=== PATIENT | female | born 1940 | race Caucasian/White ===

== ENCOUNTER → 2019-12-11 13:15 | Outpatient (CLI) | payer MEDICARE, SELFPAY ==
--- NOTE | 2019-12-11 13:20 | MR_ITS ---
PROCEDURE: MR HEAD/BRAIN WO/W CON CLINICAL INDICATION: MALIGNANT NEOPLASM OF LOWER LOBE, LEFT BRONCHUS OR LUNG COMPARISON: HEADWO CT head/brain wo con from 09/17/2018 TECHNIQUE: Routine multiplanar multi echo sequences are performed without and with gadolinium enhancement. FINDINGS: No midline shift, mass effect, intracranial hemorrhage, or hydrocephalus. No enhancing lesions. No evidence of metastatic disease. There are few scattered periventricular and subcortical T2 white matter hyperintensities which do not enhance and do not demonstrate restricted diffusion consistent with ischemic gliotic change from microvascular disease. There is some minimal linear enhancement in the left frontal lobe extending from the frontal horn of the left lateral ventricle. This is nonspecific seen only on 1 axial image and could be even be due to a small developmental venous anomaly. The cerebellopontine angles, cerebellum, and brainstem are unremarkable. The pituitary, optic chiasm, corpus callosum, and craniocervical junction have an unremarkable appearance. There is degenerative disc disease at C4-C5 with mild bulging disc and endplate osteophytes with narrowing of the canal at that level barely visible on the edge of the sagittal images. There is a small amount of fluid in the left mastoid sinus. 18 mm mucous retention cyst is present in the right maxillary sinus. IMPRESSION: 1. No acute intracranial findings. No convincing evidence of metastatic disease. 2. Small nonspecific linear area of enhancement in the left frontal lobe which may be due to a developmental venous anomaly. 3. Left mastoid sinus disease. 4. Degenerative disc disease with narrowing of the canal at the C4-C5 level which may be better evaluated with dedicated C-spine MRI if clinically desired Dictated by: Avinash Haque MD 12/11/2019 14:55 Electronically signed by Avinash Haque MD in [place] 12/11/2019 14:55
== END ==
PROVIDERS: Visit Provider Internal Medicine Hematology & Oncology
DX: C34.32 Malignant neoplasm of lower lobe, left bronchus or lung (principal); Z03.89 Encounter for observation for other suspected diseases and conditions ruled out
CPT/HCPCS: 70553; 94060; 94727; 94729; A9576

== ENCOUNTER 2020-03-26 14:13 | Emergency (ER) | payer MEDICARE, SELFPAY ==
[2020-03-26 15:16] VITALS: BP 135/90; PULSE 68; RESP 19; TEMP 36.6; O2SAT 98; BMI 22.1
--- NOTE | 2020-03-26 15:22 | HMH.EDUTC ---
[facility] [place] Disposition Clinical Impression: Healing laceration, Skin infection Disposition: Home, Self-Care Condition on Discharge: Good Instructions: Cephalexin, DI for Minor Laceration Additional Instructions: Leave area open to air when at home in clean environment *Clean well at least twice daily and apply medication as prescribed Return if needed Straight to ER if any life threatening symptoms Follow up with PCP Prescriptions: Bacitracin [Bacitracin Oint 0.9GM UDP] 1 each TP TID 10 Days #30 packet Prescription Printed cephALEXin [Keflex 500mg Cap] 500 mg PO Q6H 5 Days #20 cap Prescription Printed Referrals: Provider,Referral, [Primary Care Provider] - As needed Time of Disposition: 15:32 Medical Decision Making - Cruz Inquiry Pt receiving controlled substance: No Cruz was queried for this patient: No Vital Signs: 03/26/20 15:16 Temperature 97.8 F Temperature Source Oral Pulse Rate [Right Brachial] 68 Respiratory Rate 19 Blood Pressure [Right Arm] 135/90 Blood Pressure Mean [Right Arm] 105 Blood Pressure Source [Right Arm] Automatic Cuff Blood Pressure Position [Right Arm] Sitting 02 Sat by Pulse Oximetry 98 Oxygen Delivery Method Room Air Orders (Tests/Meds): ED MEDICATIONS Discontinued Medications Generic Name Dose Route Start Last Admin Trade Name Freq PRN Reason Stop Dose Admin Tetanus/Reduced Diphtheria/Acell Pertussis 0.5 ml 03/26/20 15:27 Adacel Tdap 0.5ml Syringe IM 03/26/20 15:28 .ONCE ONE [facility] [place] HPI - General Stated complaint: Left leg cut Time Seen by Provider: 03/26/20 15:22 Mode of Arrival: Ambulatory Source of Information: Patient Limitations: No Limitations Description of Symptoms (Recalled from Triage Doc. by RN): PATIENT CUT LEFT LEG ON [employer] by [employer] BIKE ON SUNDAY. TETANUS SHOT IS NOT UP TO DATE HEENT Symptoms (Recalled from RN notes): No Resp Symptoms (Recalled from RN notes): No Skin Symptoms (Recalled from RN notes): Yes MS Symptoms (Recalled from RN notes): No Functional Status (Recalled from RN notes): WNL - History of Present Illness Provider Complaint: Patient states that she tripped over her [employer] bike on Sunday and it cut the back of her left lower leg States that she has been cleaning it but looked red like it may be getting infected States that also she needs a tetanus shot it has been years since she had one - Related Data Previous Rx's Medication Instructions Recorded Bacitracin [Bacitracin Oint 0.9GM 1 each TP TID 10 Days #30 packet 03/26/20 UDP] cephALEXin [Keflex 500mg Cap] 500 mg PO Q6H 5 Days #20 cap 03/26/20 Allergies Allergy/AdvReac Type Severity Reaction Status Date / Time No Known Allergies Allergy Verified 09/17/18 16:45 - Worker's Comp Is this a Worker's Comp case?: No [facility] History - Hepatitis A Screen Drug use history?: No High risk sexual behaviors?: No History of sexually transmitted infection?: No Currently employed?: No Childcare worker?: No Do you have indoor plumbing?: Yes Do you have electricity?: Yes Attestation statement:: This patient has been screened for Hepatitis A risk factors. - Social History Smoking Status: Current every day smoker Tobacco Type: cigarettes # Packs/Day (cigarettes): 1 Alcohol Intake: never Occupational Status: other ROS Obtained: Yes All systems reviewed & no additional complaints, Yes Systems reviewed as appropriate & no additional complaints - Constitutional Constitutional: Reports system reviewed and no additional complaints, except as docu - Cardiovascular Cardiovascular: Reports system reviewed and no additional complaints, except as docu - Respiratory Respiratory: Yes system reviewed and no additional complaints, except as docu - Gastrointestinal Gastrointestingal: Reports: system reviewed and no additional complaints, except as docu - Musculoskeletal Musculoskeletal: Reports system reviewed and no additional complaints, except
[2020-03-26 15:39] VITALS: BP 135/90; PULSE 68; RESP 19; TEMP 36.6; O2SAT 98
== END 2020-03-26 15:41 | disposition home or self-care (01) ==
PROVIDERS: Emergency Provider Nurse Practitioner; PCP Nurse Practitioner
DX: L03.116 Cellulitis of left lower limb (principal); S81.812A Laceration without foreign body, left lower leg, initial encounter; Z23 Encounter for immunization; F17.210 Nicotine dependence, cigarettes, uncomplicated; W22.8XXA Striking against or struck by other objects, initial encounter; Y92.019 Unspecified place in single-family (private) house as the place of occurrence of the external cause
CPT/HCPCS: G0463; 90471; 90715; 99201

== ENCOUNTER → 2021-06-21 16:12 | Outpatient (CLI) | payer MEDICARE, SELFPAY ==
[2021-06-21 16:30] LABS: Basophils # 0.1 K/mm3 (0-0.2); Basophils % 0.7 % (0.1-2.0); Eosinophils # 0.1 K/mm3 (0.0-0.4); Eosinophils % 1.2 % (0.1-12.0); Hematocrit 40.5 % (37.0-47.0); Hemoglobin 13.5 g/dL (12.2-16.2); Lymphocytes # 1.4 K/mm3 (0.7-4.5); Lymphocytes % 21.7 % (10-50); Mean Corpuscular HGB Conc 33.3 g/dL (31.8-35.4); Mean Corpuscular Hemoglobin 30.3 pg (27.0-31.2); Mean Platelet Volume 7.8 fl (7.4-10.4); Monocytes # 0.4 K/mm3 (0.1-1.0); Monocytes % 5.7 % (1.7-9.3); Neutrophils # 4.6 K/mm3 (1.8-7.8); Neutrophils % 70.7 % (37.0-80.0); Platelet Count 412 K/mm3 (142-424); Red Blood Count 4.45 M/mm3 (4.20-5.40); Red Cell Distribution Width 13.2 % (11.5-17.5); White Blood Count 6.5 K/mm3 (4.8-10.8)
[2021-06-21 17:35] LABS: Alanine Aminotransferase 13 U/L (12-78); Albumin Level 3.9 g/dl (3.5-5.0); Albumin/Globulin Ratio 1.2 (1.1-1.8); Alkaline Phosphatase 92 U/L (38-126); Anion Gap 10.7 mEq/L (5-15); Aspartate Amino Transferase 27 U/L (14-36); Bilirubin,Total 0.2 mg/dl (0.2-1.3); Blood Urea Nitrogen 20 mg/dl (7-17); Calcium 9.6 mg/dl (8.4-10.2); Carbon Dioxide 28 mmol/L (22.0-30.0); Chloride 97 mmol/L (98-107); Estimated Glomerular Filt Rate 60 ml/min (>60); GFR (African American) 73 ML/MIN (>60); Globulin 3.2 g/dL (1.3-3.2); Glucose 92 mg/dl (74-100); Potassium 4.7 mmoL/L (3.5-5.1); Sodium 131 mmol/L (136-145); Total Protein,Serum 7.1 g/dl (6.3-8.2)
[2021-06-21 17:51] LABS: 25-OH Vitamin D, Total 49.7 ng/mL (30-100)
[2021-06-21 18:07] LABS: Thyroid Stimulating Hormone 2.49 uIU/mL (0.465-4.68)
[2021-06-21 18:25] LABS: Vitamin B12 486 pg/mL (239-931)
[2021-06-23 12:18] LABS: Rapid Plasma Reagin Ab Titer Non Reactive (NonRea<1:1)
== END ==
PROVIDERS: Visit Provider Nurse Practitioner Family
DX: C34.90 Malignant neoplasm of unspecified part of unspecified bronchus or lung (principal); R53.83 Other fatigue; R41.0 Disorientation, unspecified
CPT/HCPCS: 36415; 80053; 82306; 82607; 84443; 85025; 86592; 87086

== ENCOUNTER → 2021-07-05 10:40 | Outpatient (CLI) | payer MEDICARE, SELFPAY ==
--- NOTE | 2021-07-05 10:46 | MR_ITS ---
PROCEDURE INFORMATION: Exam: MR Head Without and With Contrast Exam date and time: 07/05/2021 10:46 AM Age: 80 years old Clinical indication: Altered mental status/memory loss. TECHNIQUE: Imaging protocol: MR of the head without and with intravenous contrast. Contrast material: PROHANCE; Contrast volume: 9 ml; Contrast route: IV; COMPARISON: MR HEAD/BRAIN WO/W CON 12/11/2019 1:42 PM FINDINGS: Brain: There is a 2.6 x 2.1 cm heterogeneously enhancing mass within the left parietal lobe with moderate surrounding vasogenic edema, mass effect, but no significant midline shift. There is a 2nd 3.5 x 2.5 cm heterogeneously enhancing mass within the right temporal lobe contiguous with the atrium of the left lateral ventricle. There is moderate surrounding vasogenic edema. There is a 3.2 x 3.0 cm heterogeneously enhancing mass within the right cerebellum with moderate surrounding vasogenic edema. There is moderate mass effect on the 4th ventricle due to the right cerebellar mass. There is mild ventriculomegaly consistent with mild hydrocephalus. There are occasional nonspecific foci of high signal abnormality in the blevins radiata and centrum semiovale. These are best seen on the flair images. These foci may represent areas of gliosis, demyelination, and/or chronic ischemic change. Cerebral ventricles: See Brain finding. Bones/joints: Unremarkable. Paranasal sinuses: There is mild sinus disease. Mastoid air cells: There is moderate left mastoid disease. Orbital cavity: Unremarkable. Soft tissues: Unremarkable. IMPRESSION: 1. Multiple large heterogeneously enhancing masses consistent with metastases in this patient with known lung cancer. Neurosurgical consultation is recommended. 2. There is moderate mass effect on the 4th ventricle due to the right cerebellar mass. There is mild ventriculomegaly consistent with mild hydrocephalus. Neurosurgical consultation is recommended. 3. There are occasional nonspecific foci of high signal abnormality in the blevins radiata and centrum semiovale. These are best seen on the flair images. These foci may represent areas of gliosis, demyelination, and/or chronic ischemic change. 4. There is moderate left mastoid disease.
== END ==
PROVIDERS: PCP Nurse Practitioner Family; Visit Provider Nurse Practitioner Family
DX: R51.9 Headache, unspecified (principal); R41.0 Disorientation, unspecified; C34.90 Malignant neoplasm of unspecified part of unspecified bronchus or lung
CPT/HCPCS: 70553; A9576

== ENCOUNTER → 2021-08-17 15:36 | Outpatient (CLI) | payer MEDICARE, SELFPAY ==
[2021-08-17 15:39] LABS: Microscopic, Urine URINE MICROSCOPIC (MICROSCOPIC)
[2021-08-17 16:32] LABS: Appearance,Urine CLEAR (Clear); Bilirubin,Urine Negative (Negative); Blood, Urine Negative (Negative); Color,Urine YELLOW (Yellow); Glucose,Urine (UA) Negative (Negative); Ketones,Urine Negative (Negative); Leukocyte Esterase,Urine Negative (Negative); Nitrate,Urine Negative (Negative); Protein,Urine 2+ (Negative); Urobilinogen,Urine 0.2 EU/dl (0.2)
[2021-08-17 16:39] LABS: Bacteria,Urine Trace /lpf; Squamous Epithelial Cell,Urine Occasional #/hpf (0-5); WBC,Urine Occasional #/hpf (0-3)
[2021-08-17 16:40] LABS: Albumin Level 3.6 g/dl (3.5-5.0); Chloride 91 mmol/L (98-107); Potassium 3.9 mmoL/L (3.5-5.1); Sodium 126 mmol/L (136-145)
[2021-08-17 16:43] LABS: Anion Gap 10.9 mEq/L (5-15); Blood Urea Nitrogen 23 mg/dl (7-17); Calcium 8.6 mg/dl (8.4-10.2); Carbon Dioxide 28 mmol/L (22.0-30.0); Creatinine,Urine Random 38 mg/dL (Not Estab.); Estimated Glomerular Filt Rate 69 ml/min (>60); GFR (African American) 83 ML/MIN (>60); Glucose 94 mg/dl (74-100); Phosphorous 4.6 mg/dl (2.5-4.5)
== END ==
PROVIDERS: Visit Provider Internal Medicine Nephrology
DX: N18.31 Chronic kidney disease, stage 3a (principal); R80.9 Proteinuria, unspecified
CPT/HCPCS: 36415; 80069; 81001; 82570; 84155

== ENCOUNTER 2021-09-26 09:11 | Emergency (ER) | payer MEDICARE, SELFPAY ==
[2021-09-26] VITALS (15 sets, daily range): BP systolic 96–159; BP diastolic 55–110; PULSE 54–87; RESP 18; TEMP 36.6–36.8; O2SAT 95–99; BMI 19.3
--- NOTE | 2021-09-26 09:32 | CT_ITS ---
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 Coronal reformatted images were also obtained. This study was performed with techniques to keep radiation doses as low as reasonably achievable (ALARA). Individualized dose reduction techniques using automated exposure control or adjustment of mA and/or kV according to the patient's size were employed. There is age appropriate atrophy. There are left parietal and cerebral areas of encephalomalacia are new since the prior exam. There is no evidence of intracranial hemorrhage or mass. Mild ventriculomegaly is worse since the prior exam. There is no evidence of shift of the midline structures. No skull abnormality is seen on the bone window images. There is moderate to severe mucosal thickening in the right maxillary sinus and several ethmoid air cells. IMPRESSION: Atrophy. New areas of encephalomalacia. No acute hemorrhage. Right maxillary and ethmoid sinusitis. Reviewed, Interpreted and Dictated by Brian Mckeon III, MD Transcribed by Toni Mcadams Authenticated by Brian Mckeon III, MD on 09/26/2021 01:23:43 PM [facility]
--- NOTE | 2021-09-26 09:32 | XR_ITS ---
FINAL REPORT CLINICAL HISTORY: cough, ams, pt has hx lung cancer with mets to the brain COMPARISON: September 17 2018 FINDINGS: SINGLE VIEW CHEST. The heart is normal in size. The mediastinum is unremarkable. There is worsening bilateral pulmonary opacities consistent with worsening pneumonia. There is no pneumothorax. IMPRESSION: Worsening pneumonia. Reviewed, Interpreted and Dictated by Brian Mckeon III, MD Transcribed by Cherie Clarke Authenticated by Brian Mckeon III, MD on 09/26/2021 11:05:52 AM [facility]
--- NOTE | 2021-09-26 10:00 | PC.NURSE ---
pt gone to ct
[2021-09-26 10:03] LABS: Coronavirus 19, PCR Not Detected (NotDetected); Influenza A, PCR Not Detected (NotDetected); Influenza B, PCR Not Detected (NotDetected)
[2021-09-26 10:07] LABS: Basophils # 0.1 K/mm3 (0-0.2); Basophils % 0.7 % (0.1-2.0); Eosinophils % 0.4 % (0.1-12.0); Hematocrit 32.3 % (37.0-47.0); Hemoglobin 10.7 g/dL (12.2-16.2); Lymphocytes # 1.1 K/mm3 (0.7-4.5); Lymphocytes % 15.1 % (10-50); Mean Corpuscular HGB Conc 33.1 g/dL (31.8-35.4); Mean Corpuscular Hemoglobin 29.6 pg (27.0-31.2); Mean Corpuscular Volume 89.5 fl (81-99); Mean Platelet Volume 7.8 fl (7.4-10.4); Monocytes # 0.4 K/mm3 (0.1-1.0); Monocytes % 5.3 % (1.7-9.3); Neutrophils # 5.9 K/mm3 (1.8-7.8); Neutrophils % 78.5 % (37.0-80.0); Platelet Count 385 K/mm3 (142-424); Red Blood Count 3.61 M/mm3 (4.20-5.40); White Blood Count 7.5 K/mm3 (4.8-10.8)
[2021-09-26 10:13] LABS: Chloride 97 mmol/L (98-107); Sodium 129 mmol/L (136-145)
[2021-09-26 10:14] LABS: Potassium 4.1 mmoL/L (3.5-5.1)
[2021-09-26 10:16] LABS: Alanine Aminotransferase 11 U/L (12-78); Albumin Level 3.2 g/dl (3.5-5.0); Albumin/Globulin Ratio 0.9 (1.1-1.8); Alkaline Phosphatase 78 U/L (38-126); Anion Gap 10.1 mEq/L (5-15); Aspartate Amino Transferase 23 U/L (14-36); Bilirubin,Total 0.4 mg/dl (0.2-1.3); Blood Urea Nitrogen 14 mg/dl (7-17); Carbon Dioxide 26 mmol/L (22.0-30.0); Creatinine Clearance Estimated 32 mL/min (50-200); Estimated Glomerular Filt Rate 60 ml/min (>60); GFR (African American) 73 ML/MIN (>60); Globulin 3.5 g/dL (1.3-3.2); Total Protein,Serum 6.7 g/dl (6.3-8.2)
[2021-09-26 10:17] LABS: Calcium 8.6 mg/dl (8.4-10.2); Glucose 99 mg/dl (74-100)
--- NOTE | 2021-09-26 10:23 | HMH.EDAMS ---
ED Disposition Clinical Impression: Delirium due to general medical condition Pneumonia Qualifiers: Pneumonia type: due to unspecified organism Laterality: bilateral Lung location: lower lobe of lung Qualified Code(s): J18.9 - Pneumonia, unspecified organism Disposition: Home, Self-Care Condition on Discharge: Good Instructions: DI for Pneumonia -- Adult Prescriptions: cephALEXin [Cephalexin 500mg Tab] 500 mg PO BID #20 tab Transmission Status: Pending to [facility] Doxycycline Monohydrate [Doxycycline [place] 100mg Tab] 100 mg PO Q12 #20 tab Transmission Status: P[facility] to [facility] Referrals: Judie Vaca APRN [Primary Care Provider] - - Critical Care Critical Care Time: No Attestation: On 09/26/21, the high probability of a clinically significant, sudden or life threatening deterioration of the following system(s) required my full and direct attention, intervention and personal management. The time I documented below is in addition to time spent performing reported procedures but includes the following listed in this critical care notation. Medical Decision Making - Medical Records Medical records reviewed: Yes: I reviewed the patient's medical records. - Cruz Inquiry Pt receiving controlled substance: No Vital Signs: 09/26/21 09:28 09/26/21 09:30 09/26/21 09:34 Temperature 97.8 F Temperature Source Oral Pulse Rate 62 62 Pulse Rate [Left Radial] 65 Respiratory Rate 18 18 18 Blood Pressure 144/64 H 159/73 H Blood Pressure [Right Arm] 159/73 H Blood Pressure Mean 74 101 Blood Pressure Mean [Right Arm] 101 Blood Pressure Source [Right Arm] Automatic Cuff Blood Pressure Position [Right Arm] Sitting 02 Sat by Pulse Oximetry 98 99 96 Oxygen Delivery Method Room Air 09/26/21 09:45 09/26/21 10:24 09/26/21 10:31 Temperature Temperature Source Pulse Rate 61 62 62 Pulse Rate [Left Radial] Respiratory Rate 18 18 Blood Pressure 140/62 139/58 L 96/75 L Blood Pressure [Right Arm] Blood Pressure Mean 105 82 Blood Pressure Mean [Right Arm] Blood Pressure Source [Right Arm] Blood Pressure Position [Right Arm] 02 Sat by Pulse Oximetry 97 99 95 Oxygen Delivery Method 09/26/21 11:00 09/26/21 11:30 09/26/21 12:00 Temperature Temperature Source Pulse Rate 61 56 L 54 L Pulse Rate [Left Radial] Respiratory Rate 18 18 18 Blood Pressure 133/59 L 145/56 H 136/56 L Blood Pressure [Right Arm] Blood Pressure Mean 83 85 82 Blood Pressure Mean [Right Arm] Blood Pressure Source [Right Arm] Blood Pressure Position [Right Arm] 02 Sat by Pulse Oximetry 98 97 98 Oxygen Delivery Method 09/26/21 12:31 09/26/21 13:01 Temperature Temperature Source Pulse Rate 65 57 L Pulse Rate [Left Radial] Respiratory Rate 18 18 Blood Pressure 129/55 L 154/58 H Blood Pressure [Right Arm] Blood Pressure Mean 87 90 Blood Pressure Mean [Right Arm] Blood Pressure Source [Right Arm] Blood Pressure Position [Right Arm] 02 Sat by Pulse Oximetry 96 96 Oxygen Delivery Method - Lab Data Lab Results 09/26/21 09:32: Urine Color Yellow, Urine Appearance Clear, Urine pH 7.0, Ur Specific [place] 1.020, Urine Protein 2+, Urine Glucose (UA) Negative, Urine Ketones Negative, Urine Blood Negative, Urine Nitrate Negative, Urine Bilirubin Negative, Urine Urobilinogen 0.2, Ur Leukocyte Esterase Trace, Urine WBC 5-10, Ur Squamous Epith Cells 3-5 09/26/21 09:32: WBC 7.5, RBC 3.61 L, Hgb 10.7 L, Hct 32.3 L, MCV 89.5, MCH 29.6, MCHC 33.1, RDW 15.0, Plt Count 385, MPV 7.8, Neut % (Auto) 78.5, Lymph % (Auto) 15.1, [place] % (Auto) 5.3, Eos % (Auto) 0.4, Baso % (Auto) 0.7, Neut # (Auto) 5.9, Lymph # (Auto) 1.1, [place] # (Auto) 0.4, Eos # (Auto) 0.0, Baso # (Auto) 0.1 09/26/21 09:32: Sodium 129 L, Potassium 4.1, Chloride 97 L, Carbon Dioxide 26, Anion Gap 10.1, BUN 14, Creatinine 0.90, Estimated Creat Clear 32, Estimated GFR 60, Est GFR ( Amer
[2021-09-26 10:47] LABS: Thyroid Stimulating Hormone 1.76 uIU/mL (0.465-4.68)
[2021-09-26 11:25] LABS: Microscopic, Urine URINE MICROSCOPIC (MICROSCOPIC)
[2021-09-26 11:31] LABS: Appearance,Urine CLEAR (Clear); Bilirubin,Urine Negative (Negative); Blood, Urine Negative (Negative); Color,Urine YELLOW (Yellow); Glucose,Urine (UA) Negative (Negative); Ketones,Urine Negative (Negative); Leukocyte Esterase,Urine TRACE (Negative); Nitrate,Urine Negative (Negative); Protein,Urine 2+ (Negative); Urobilinogen,Urine 0.2 EU/dl (0.2)
== END 2021-09-26 15:04 | disposition home or self-care (01) ==
PROVIDERS: Emergency Provider Emergency Medicine; PCP Nurse Practitioner Family
DX: F05 Delirium due to known physiological condition (principal); J18.9 Pneumonia, unspecified organism; Z20.822 Contact with and (suspected) exposure to COVID-19; Z85.118 Personal history of other malignant neoplasm of bronchus and lung; C79.31 Secondary malignant neoplasm of brain; Z79.899 Other long term (current) drug therapy
CPT/HCPCS: 70450; 71045; 80053; 81001; 84443; 85025; 96365; 96367; 99283; C9803; J0696; U0003; U0005